=== PATIENT | female | born 1995 | race Hispanic/Latino ===

== ENCOUNTER 2020-11-20 17:43 | Emergency (ER) | payer OTHER ==
[~2020-11-20] VITALS: Ht 157.5 cm; Wt 78.0 kg
[2020-11-20 22:15] VITALS: BP 124/67
[2020-11-20] MEDS ORDERED: HYDROCORTISONE 1% CREAM 30 GM TOP ONE (23:00)
[2020-11-20] MEDS ORDERED: HYDR1CRE30 TOP (23:01)
== END 2020-11-20 23:11 | disposition home or self-care (01) ==
LOC: M ED 17:43
DX: B08.1 Molluscum contagiosum (principal)